=== PATIENT | female | born 1965 | race Caucasian/White ===

== ENCOUNTER 2017-10-29 11:44 | Emergency (ER) | payer BC ==
[2017-10-29 11:54] VITALS: BP 146/81
[2017-10-29] MEDS ORDERED: HYDROmorphone 1 MG/ML Syringe IVPUSH ONE (12:21)
[2017-10-29] MEDS ORDERED: Acetaminophen 325 MG Tab PO ONE (12:24)
[2017-10-29] MEDS ORDERED: Diazepam 5 MG Tab PO ONE (12:24)
--- NOTE | 2017-10-29 12:34 | EDM.PDOC ---
ED HPI GENERAL MEDICAL PROBLEM - General Chief Complaint: Back Pain or Injury Stated Complaint: RIGHT HIP AND LEG PAIN Time Seen by Provider: 10/29/17 11:48 Source of Information: Reports: Patient History Limitations: Reports: No Limitations - History of Present Illness INITIAL COMMENTS - FREE TEXT/NARRATIVE: 52 y F hx of sacroilitis presenting with lower back pain. Issue has been occurring chronically over weeks but pain is 10/10 and severe today, radiating down her right leg. She has no weakness of the lower extremities. No sensory deficits or numbness in the lower extremities. Patient has sustained no trauma to exacerbate the pain. She saw her primary care in the middle of September and ordered an MRI and also set up a referral for physical therapy and orthopedic surgery consult. 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 She did have an MRI performed as an outpatient on Wednesday. The read on that is still pending. Patient did provide me with a report of the plain films which were obtained recently. Right Hip Pain Score (Numeric/FACES): 9 - Related Data Allergies Allergy/AdvReac Type Severity Reaction Status Date / Time diltiazem Allergy Dizziness Verified 01/20/16 22:35 nifedipine [From Procardia] Allergy Rash Verified 08/07/13 20:12 Home Meds: Home Meds Ca Carbonate/Vitamin D3/Vit K [Calcium + D Soft Chewable Tab] 1 each PO DAILY [History] Esomeprazole [NexIUM] 40 mg PO DAILY 08/07/13 [History] Metoprolol Succinate [Toprol XL 100mg] 200 mg PO DAILY 08/07/13 [History] Multivitamin [Multi-Vitamin Daily] 1 each PO DAILY 08/07/13 [History] Naproxen Sodium/SUMAtriptan [Treximet 500-85 MG] 1 tab PO DAILY PRN 08/07/13 [ History] Albuterol Sulfate [Proair Hfa] 1 puff INH ASDIRECTED PRN 02/14/16 [History] Magnesium 400 mg PO DAILY 10/29/17 [History] Nabumetone 500 mg PO DAILY 10/29/17 [History] Vitamin B Complex [B Complex] 1 tab PO DAILY 10/29/17 [History] Past Medical History HEENT History: Reports: Impaired Vision Other HEENT History: Wears glasses Cardiovascular History: Reports: Hypertension, Other (See Below) Other Cardiovascular History: vericose veins Gastrointestinal History: Reports: GERD Genitourinary History: Reports: Renal Calculus 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: Neurological History: Reports: Migraines - Past Surgical History HEENT Surgical History: Reports: Tonsillectomy GI Surgical History: Reports: Cholecystectomy Female Surgical History: Reports: Lithotripsy/ESWL, Other (See Below) Social & Family History - Tobacco Use Smoking Status *Q: Never Smoker - Caffeine Use Caffeine Use: Reports: Soda - Recreational Drug Use Recreational Drug Use: No ED ROS GENERAL - Review of Systems Review Of Systems: See Below Constitutional: Reports: No Symptoms HEENT: Reports: No Symptoms Respiratory: Reports: No Symptoms Cardiovascular: Reports: No Symptoms Endocrine: Reports: No Symptoms GI/Abdominal: Reports: No Symptoms : Reports: No Symptoms Musculoskeletal: Reports: Back Pain, Leg Pain Skin: Reports: No Symptoms Neurological: Reports: No Symptoms ED EXAM,LOWER BACK PAIN/INJURY - Physical Exam Exam: See Below Exam Limited By: No Limitations General Appearance: Alert, No Apparent Distress Ears: Normal External Exam Nose: Normal Inspection Head: Atraumatic, Normocephalic Neck: Normal Inspection, Non-Tender, Full Range of Motion Respiratory/Chest: No Respiratory Distress Cardiovascular: Normal Peripheral Pulses, Regular Rate, Rhythm GI/Abdominal: Normal Bowel Sounds Back Exam: Normal Inspection Neurological: Alert, Normal Mood/Affect, CN II-XII Intact, Other (Strength is 5 out of 5 in the bilateral lower show me his with dorsi and plantar flexion. Patient has no sensory deficitsL anesthesia. The patient is mildly tender to palpation at the right SI joint.) Skin Exam: Warm, Dry, Intact Course - Vital Signs Last Recorded V/S: Last Vital Signs Temp 36.2 C 10/29/17 11:54 Pulse 76 10/29/17 11:54 Resp 20 10/29/17 11:54 BP 146/81 H 10/29/17 11:54 Pulse Ox 100 10/29/17 11:54 - Orders/Labs/Meds Meds: Medications Discontinued Medications Generic Name Dose Route Start Last Admin Trade Name Freq PRN Reason Stop Dose Admin Acetaminophen 975 mg 10/29/17 12:24 10/29/17 12:40 Tylenol PO 10/29/17 12:25 975 mg NOW ONE Administration Diazepam 5 mg 10/29/17 12:24 10/29/17 12:40 Valium. PO 10/29/17 12:25 5 mg ONETIME ONE Administration Hydromorphone HCl 1 mg 10/29/17 12:21 10/29/17 12:46 Dilaudid IVPUSH 10/29/17 12:22 Not Given ONETIME ONE Hydromorphone HCl 1 mg 10/29/17 12:39 10/29/17 12:42 Dilaudid IM 10/29/17 12:40 1 mg ONETIME ONE Administration - Re-Assessments/Exams Free Text/Narrative Re-Assessment/Exam: 10/29/17 12:36 52-year-old female presenting with a chief complaint of lower back pain and right leg pain. Initial evaluation the patient appeared to be in a moderate amount of distress with some tears. Physical exam was reassuring with no focal neurologic deficits in the lower extremities. Patient provided me with a copy of an outside x-ray of her lumbar spine and hips which was obtained on September. As interpreted as degenerative changes of the L-spine with lower lumbar facet arthropathy and increased sclerosis about the right SI joint suggested of sacroiliitis. Of note the patient has been taking too much Tylenol she misunderstood directions given her by her primary care provider. She took one dose 1200 mg of ibuprofen last night. I explained to the patient she should take no more than 600-800 mg at the most of ibuprofen and one dose and should not take more than 2400 mg in 1 day. I explained her the risks included GI hemorrhage as well as possible renal failure. Patient clearly understood these instructions. Matthew today in the emergency department is to get control of patient's pain was Tylenol, 1 dose of IV Dilaudid and Valium. Explained to patient that she will not be sent home with a prescription for opioids. Plan to send her home with clear directions for Tylenol and ibuprofen dosages. Departure - Departure Time of Disposition: 13:17 Disposition: DC[facility] Clinical Impression: Sacroiliitis - Discharge Information *PRESCRIPTION DRUG MONITORING PROGRAM REVIEWED*: No *COPY OF PRESCRIPTION DRUG MONITORING REPORT IN PATIENT TOM: No Referrals: Brenda Ding MD [Primary Care Provider] - Forms: ED Department Discharge Additional Instructions: You were seen and evaluated in the emergency department today for back pain and leg pain. At this time year history and physical exam seemed to indicate that this pain is likely due to her chronic problems of sacroiliitis. There is no indication any further diagnostic imaging today or that you have any emergency. It is safe to go home right now. Please only take 1000 mg of Tylenol 3 times per day. Please only take 600 mg of ibuprofen 3-4 times per day. Please understand that Advil and ibuprofen are the same medication. You may return to the emergency department for reevaluation at any time should your symptoms be uncontrollable or otherwise concerning to you, including numbness or weakness of her legs. Please continue to follow up closely with your PCP.
[2017-10-29] MEDS ORDERED: HYDROmorphone 1 MG/ML Syringe IM ONE (12:39)
== END 2017-10-29 13:55 | disposition designated cancer center or children's hospital (05) ==
LOC: JD.ED 11:44
DX: M46.1 Sacroiliitis, not elsewhere classified (principal); I10 Essential (primary) hypertension; Z79.899 Other long term (current) drug therapy; Z88.8 Allergy status to other drugs, medicaments and biological substances
CPT/HCPCS: 96372; 99284; A9270; J1170

== ENCOUNTER 2020-10-15 19:27 | Emergency (ER) | payer BC ==
[2020-10-15 19:52] VITALS: BP 140/73; PULSE 91
--- NOTE | 2020-10-15 20:24 | EDM.PDOC ---
ED HPI GENERAL MEDICAL PROBLEM - General Chief Complaint: Lower Extremity Injury/Pain Stated Complaint: RIGHT CALF PAIN Time Seen by Provider: 10/15/20 19:51 Source of Information: Reports: Patient, RN Notes Reviewed History Limitations: Reports: No Limitations - History of Present Illness INITIAL COMMENTS - FREE TEXT/NARRATIVE: Patient is a 55-year-old female who presents to the ER for the evaluation of her right calf pain. Patient notes that she developed some pain and swelling into her right posterior calf today. Notes that she does have a history of varicose veins, and was going to wait to go to the doctor tomorrow, but was urged by family to come to the ER for evaluation of a blood clot. She is having no sick symptoms like fevers or chills, cough or shortness of breath. She has no pain distal to the injury, and she denies any sort of trauma that she may have incurred. There is no bruising apparent. Right Lower Leg Pain Score (Numeric/FACES): 6 - Related Data Allergies Allergy/AdvReac Type Severity Reaction Status Date / Time diltiazem Allergy Dizziness Verified 10/15/20 19:53 nifedipine [From Procardia] Allergy Rash Verified 10/15/20 19:53 Home Meds: Home Meds Calcium Carb/Vitamin D3/Vit K1 [Calcium + D Soft Chewable Tab] 1 each PO DAILY 08/07/13 [History] Esomeprazole [NexIUM] 40 mg PO DAILY 08/07/13 [History] Metoprolol Succinate [Toprol XL 100mg] 200 mg PO DAILY 08/07/13 [History] Multivitamin [Multi-Vitamin Daily] 1 each PO DAILY 08/07/13 [History] Albuterol Sulfate [Proair Hfa] 1 puff INH ASDIRECTED PRN 02/14/16 [History] Magnesium 400 mg PO DAILY 10/29/17 [History] Calcitriol 0.25 mcg PO BID 10/15/20 [History] Cyanocobalamin (Vitamin B12) [Vitamin B13] 500 mcg PO DAILY 10/15/20 [History] DULoxetine HCl [Cymbalta] 60 mg PO DAILY 10/15/20 [History] Gabapentin [Neurontin] 600 mg PO TID 10/15/20 [History] Levothyroxine 200 mcg PO ACBREAKFAST 10/15/20 [History] Potassium Chloride [Klor-Con 10] 10 meq PO DAILY 10/15/20 [History] Selenium 200 mcg PO DAILY 10/15/20 [History] Past Medical History HEENT History: Reports: Impaired Vision Other HEENT History: Wears glasses Cardiovascular History: Reports: Hypertension, Other (See Below) Other Cardiovascular History: vericose veins Gastrointestinal History: Reports: GERD Genitourinary History: Reports: Renal Calculus 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: Neurological History: Reports: Migraines - Past Surgical History HEENT Surgical History: Reports: Tonsillectomy Other HEENT Surgeries/Procedures: wisdom teeth GI Surgical History: Reports: Cholecystectomy Female Surgical History: Reports: Lithotripsy/ESWL, Other (See Below) Other Female Surgeries/Procedures: hysteroscopy Social & Family History - Tobacco Use Tobacco Use Status *Q: Never Tobacco User - Caffeine Use Caffeine Use: Reports: Soda - Recreational Drug Use Recreational Drug Use: No Review of Systems - Review of Systems Review Of Systems: Comprehensive ROS is negative, except as noted in HPI. ED EXAM, GENERAL - Physical Exam Exam: See Below Exam Limited By: No Limitations General Appearance: Alert, WD/WN, No Apparent Distress Respiratory/Chest: No Respiratory Distress, Lungs Clear, Normal Breath Sounds, No Accessory Muscle Use, Chest Non-Tender Cardiovascular: Normal Peripheral Pulses, Regular Rate, Rhythm, No Edema Peripheral Pulses: 2+: Radial (L), Radial (R) Extremities: Normal Inspection, No Pedal Edema, Normal Capillary Refill, Osvaldo's Sign (of right calf), Leg Pain (there is some tenderness over a lump on the patient's R posterior calf-possibly thrombophlebitis.). No: Redness Neurological: Alert, Oriented, Normal Cognition, No Motor/Sensory Deficits Psychiatric: Normal Affect, Normal Mood Skin Exam: Warm, Dry, Intact, Normal Color, No Rash Course - Vital Signs Last Recorded V/S: Last Vital Signs Temp 98.8 F 10/15/20 19:50 Pulse 91 10/15/20 19:50 Resp 16 10/15/20 19:50 BP 140/73 10/15/20 19:50 Pulse Ox 95 10/15/20 19:50 - Orders/Labs/Meds Orders: Active Orders 24 hr Category Date Time Status VL Duplex Lwr Ext Veins Ltd Rt [US] Stat Exams 10/15/20 20:00 Ordered - Re-Assessments/Exams Free Text/Narrative Re-Assessment/Exam: 10/15/20 20:24 Patient presents to the ER for the evaluation of her right calf pain. For tonight's purposes we will go ahead and get an ultrasound of the area to evaluate for blood clot. This could be thrombophlebitis versus clot at this time. 10/15/20 21:21 Ultrasound demonstrated no sign of a DVT at this time, there is superficial thrombophlebitis of the posterior right calf apparent. I did go over management of this with the patient, notes that she does have an upcoming surgery so she will contact her surgeon about medication usage but I did tell her she can use warm compresses and at least Tylenol for pain management, she verbalized understanding. Departure - Departure Time of Disposition: 21:22 Disposition: Home, Self-Care 01 Condition: Good Clinical Impression: Superficial thrombophlebitis Qualifiers: Superficial thrombophlebitis-Involved body area: lower extremity Laterality: right Qualified Code(s): I80.01 - Phlebitis and thrombophlebitis of superficial vessels of right lower extremity - Discharge Information *PRESCRIPTION DRUG MONITORING PROGRAM REVIEWED*: No *COPY OF PRESCRIPTION DRUG MONITORING REPORT IN PATIENT TOM: No Instructions: Thrombophlebitis, Phlebitis, [id number] Referrals: Brenda Ding MD [Primary Care Provider] - Forms: ED Department Discharge Additional Instructions: You were evaluated in the ER today for your right calf pain. Ultrasound demonstrated a superficial thrombophlebitis, which is an inflammation of the vein and your right lower leg. Management of this will be hot compresses to the area, and [id number] medication for pain control. You may use Tylenol or ibuprofen for ongoing management. Please consult your surgeon, on the use of these [id number] medications, as he may not want you to be on ibuprofen prior to surgery. And you might have to stick with using Tylenol for pain management. Please do not hesitate to return to the ER at any time if symptoms change or worsen. Sepsis Event Note (ED) - Focused Exam Vital Signs: Vital Signs Temp Pulse Resp BP Pulse Ox 10/15/20 19:50 98.8 F 91 16 140/73 95 - My Orders Last 24 Hours: My Active Orders 10/15/20 20:00 VL Duplex Lwr Ext Veins Ltd Rt [US] Stat - Assessment/Plan Last 24 Hours: My Active Orders 10/15/20 20:00 VL Duplex Lwr Ext Veins Ltd Rt [US] Stat
--- NOTE | 2020-10-16 09:25 | US ---
Right lower extremity deep venous ultrasound: Duplex and color Doppler evaluation were obtained of the right common femoral, proximal greater saphenous, superficial femoral, popliteal, posterior tibial and peroneal veins. Left common femoral vein was also evaluated. Comparison: No prior venous imaging is available. Findings: Right posterior tibial and peroneal veins were difficult to visualize but color flow is seen within these veins on Doppler evaluation. Other veins show normal phasic flow, augmentation and compression. Superficial veins within the posterior calf show evidence of thrombosis compatible with superficial thrombophlebitis. Impression: 1. No definite deep venous thrombosis within the right lower extremity or left common femoral vein. 2. Superficial veins within the posterior calf compatible with superficial thrombophlebitis. Diagnostic code #3 I agree with preliminary report from [facility], finalized on 10/15/20, 10:08 PM CDT, code 1
== END 2020-10-15 21:35 | disposition home or self-care (01) ==
LOC: JD.ED 19:27
DX: I80.01 Phlebitis and thrombophlebitis of superficial vessels of right lower extremity (principal); I10 Essential (primary) hypertension; K21.9 Gastro-esophageal reflux disease without esophagitis; Z88.8 Allergy status to other drugs, medicaments and biological substances; Z79.899 Other long term (current) drug therapy
CPT/HCPCS: 93971-26-RT; 93971-RT; 99283; 99283-25

== ENCOUNTER 2021-04-12 18:48 | Emergency (ER) | payer BC ==
[2021-04-12 19:05] VITALS: PULSE 94
[2021-04-12] MEDS ORDERED: Ketorolac 15 MG/ML SDV IM ONE (19:32)
[2021-04-12 20:32] LABS: CORONAVIRUS COVID-19 NAA POSITIVE (NEGATIVE)
[2021-04-12 21:22] VITALS: BP 143/74
== END 2021-04-12 21:21 | disposition home or self-care (01) ==
LOC: SUPCPDRO 18:48 → JD.ED 18:48
DX: U07.1 COVID-19 (principal); I10 Essential (primary) hypertension; K21.9 Gastro-esophageal reflux disease without esophagitis; Z88.8 Allergy status to other drugs, medicaments and biological substances; Z79.899 Other long term (current) drug therapy
CPT/HCPCS: 0241U; 36415; 80053; 85025; 93005; 96372; 99284; J1885